=== PATIENT | female | born 1970 | race Caucasian/White ===

== ENCOUNTER → 2022-04-04 13:16 | Outpatient (BNVA) | payer OTHER, SELFPAY | PROVIDERS: PCP Internal Medicine; Visit Provider Nurse Practitioner Family | DX: R14.0 Abdominal distension (gaseous) (principal) ==

== ENCOUNTER 2022-05-04 06:24 | Day surgery (SDC) | payer OTHER, SELFPAY ==
[2022-05-01 15:26] VITALS: BMI 28.8
--- NOTE | 2022-05-03 13:08 | P.CONAN_ITS ---
Documented by User: Josie Marte NP 05/03/22 13:08 HPI - Anesthesia Eval Consult details Narrative: 51yo F for Colonoscopy [facility] Family History Family History Father Colon cancer Diabetes 1.5, managed as type 2 Maternal Grandfather Colon cancer Brother Diabetes 1.5, managed as type 1 Sister Colon polyps Surgical History Surgical History Hx of tonsillectomy Status post hysteroscopic ablation of endometrium Social History Social History Household Members: Spouse Alcohol intake: current Alcohol intake frequency: 0-2 drinks per day Patient Tobacco Use Status: Never used Tobacco Use of substances other than those prescribed or required for medical reasons: No Are you DNR?: No Advance Directives: No Advance Directives Information Provided: Yes service: No Current occupational status: employed 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 Gender identity: Female Meds Allergies Allergy/AdvReac Type Severity Reaction Status Date / Time No Known Allergies Allergy Verified 04/04/22 14:01 Home Medications Medication Instructions Recorded Confirmed Last Taken Type acyclovir 5 % topical cream appl topical PRN Cold Sores 03/17/22 Unknown History ibuprofen 600 mg tablet 600 mg PO TID 03/17/22 05/04/22 05/02/22 History simvastatin 40 mg tablet 40 mg PO QPM 03/17/22 05/04/22 Unknown History Vitamin Daily 50,000 units PO QWEEK 05/04/22 05/04/22 Unknown History Exam Exam Date and Time: May 03, 2022 1308 Height,Weight and Vital Signs: Height 5 ft 5 in Weight 78.471 kg Assessment and Plan Assessment Anesthesia Assessment: Chart Reviewed Documented by User: Robin Perdomo MD 05/04/22 07:32 [facility] Past Medical History Patient : No Family History Family History Father Colon cancer Diabetes 1.5, managed as type 2 Maternal Grandfather Colon cancer Brother Diabetes 1.5, managed as type 1 Sister Colon polyps Family history of problems with anesthesia: No Surgical History Surgical History Hx of tonsillectomy Status post hysteroscopic ablation of endometrium History of Problems with Anesthesia: No Social History Social History Household Members: Spouse Alcohol intake: current Alcohol intake frequency: 0-2 drinks per day Patient Tobacco Use Status: Never used Tobacco Use of substances other than those prescribed or required for medical reasons: No Are you DNR?: No Advance Directives: No Advance Directives Information Provided: Yes service: No Current occupational status: employed 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 Gender identity: Female Meds Allergies Allergy/AdvReac Type Severity Reaction Status Date / Time No Known Allergies Allergy Verified 04/04/22 14:01 Home Medications Medication Instructions Recorded Confirmed Last Taken Type acyclovir 5 % topical cream appl topical PRN Cold Sores 03/17/22 Unknown History ibuprofen 600 mg tablet 600 mg PO TID 03/17/22 05/04/22 05/02/22 History simvastatin 40 mg tablet 40 mg PO QPM 03/17/22 05/04/22 Unknown History Vitamin Daily 50,000 units PO QWEEK 05/04/22 05/04/22 Unknown History Exam Airway Mallampati Class: II TM Dist: >3cm Neck ROM: Full Loose/Missing/Broken Teeth: No Heart: ok Lungs: ok Assessment and Plan Final Anesthetic Review Family History of Problems with Anesthesia: No History of Problems with Anesthesia: No NPO: Yes ASA Class: I Final Preanesthetic Review: No Changes in Pt Med Stat, Meds/Allgs Chart Reviewed, Consent Obtained/Reviewed and Anes Risks/Benef Reviewed Patient Risk: Low Procedure Risk: Low Anesthetic Plan Anesthetic Plan: MAC: and Agree w/ Assess. and Plan Disposition: Standard PACU
[2022-05-04 06:44] VITALS: BMI 27.4
[2022-05-04 06:53] VITALS: BP 148/92; PULSE 81; RESP 18; TEMP 36.6; O2SAT 100
[2022-05-04] MEDS: Lactated Ringers 1,000 ML 100 ML IVCONT (07:06)
--- NOTE | 2022-05-04 07:27 | MHC.SHP ---
Pre-Procedural Eval Section A Date of Service: 05/04/22 The patient is an INPATIENT: No The History & Physical has been completed within 30 days and I have reviewed it.: Yes Section B Chief Complaint: screening Allergies: Allergies Allergy/AdvReac Type Severity Reaction Status Date / Time No Known Allergies Allergy Verified 04/04/22 14:01 Plan Diagnosis/Plan: Unchanged I have reviewed the history and physical and performed a pertinent physical examination on my patient. No changes have occurred unless specified. Time Spent With Patient Time: Total time managing care of this patient today ____ minutes.
--- NOTE | 2022-05-04 07:28 | P.OP_ITS ---
Operative Note Operative Note Date of Service: 05/04/22 Narrative: Procedure: Colonoscopy Indication: Screening; family history of colon cancer Endoscopist: Bella Hernandez MD Anesthesia Provider: Dr Robin Perdomo Anesthesia type: MAC Instrument: Olympus [id number]-[id number] Consent: Indication, risks vs benefits, and alternatives were discussed with the patient who gave written informed consent to proceed. EKG, pulse, pulse oximetry and blood pressure were monitored throughout the procedure. Please see anesthesia flowsheet. Procedure: The patient was brought to the procedure room and placed in the left lateral decubitus position. IV medications were administered by the anesthesia provider in attendance. A digital rectal exam was performed which was normal. The colonoscope was then inserted through the anus and advanced through the colon to the cecum at 85 cm, and terminal ileum. Mucosa was carefully examined under high definition white light as the instrument was slowly withdrawn in a retrograde panoramic fashion. Retroflexion was performed in ascending colon and rectum. The procedure was not difficult. There were no immediate obvious complications. The quality of the prep was BBPS: 2+3+2 = adequate Withdrawal time 10 minutes. Limitations: No limitations. Findings: Mucosa: Normal to cecum and terminal ileum. Protruding lesions: * Medium internal hemorrhoids without stigmata of recent bleeding. Impression: 1. Normal colon and terminal ileum mucosa 2. Internal hemorrhoids Recommendations: - Repeat colonoscopy in 5-7 years due to fair prep.
[2022-05-04 08:08] VITALS: BP 126/73; PULSE 82; RESP 18; TEMP 36.7; O2SAT 98
[2022-05-04 08:23] VITALS: BP 135/76; PULSE 61; RESP 18; TEMP 36.7; O2SAT 100
== END 2022-05-04 09:05 | disposition home or self-care (01) ==
PROVIDERS: PCP Internal Medicine; Referring Provider Internal Medicine; Visit Provider Internal Medicine
PROC: 0DJD8ZZ Inspection of Lower Intestinal Tract, Via Natural or Artificial Opening Endoscopic (ICD-10-PCS; CPT 45378; principal; 2022-05-04 07:30)
DX: Z12.11 Encounter for screening for malignant neoplasm of colon (principal); Z80.0 Family history of malignant neoplasm of digestive organs; K64.8 Other hemorrhoids; R19.7 Diarrhea, unspecified; R14.0 Abdominal distension (gaseous); K21.9 Gastro-esophageal reflux disease without esophagitis; Z79.899 Other long term (current) drug therapy
CPT/HCPCS: 45378

== ENCOUNTER → 2022-09-19 09:36 | Outpatient (BNVA) | payer OTHER, SELFPAY | PROVIDERS: PCP Internal Medicine; Visit Provider Internal Medicine ==